=== PATIENT | male | born 1960 | race Caucasian/White ===

== ENCOUNTER → 2018-01-26 14:15 | Outpatient (CLI) | payer BC, SELFPAY ==
--- NOTE | 2018-01-26 14:18 | CT_ITS ---
CT lung screening EXAM: CT LUNG LOW DOSE WO CONTRAST COMPARISON: None HISTORY: Tobacco abuse, asymptomatic ITS.REASON: CURRENT TOBACCO USE ORDERING PHYSICIAN: Marc Sebastian MD PATIENT AGE: 57 years TECHNIQUE: The exam . Was performed on a GE Light Speed [address] scanner using 2.90 mGy CTDI. A low dose helical CT CHEST was performed on a multi-detector scanner. All CT scans at the facility use one or more dose reduction, viz: automated exposure control; ma/kV adjustment per patient size (including targeted exams where dose is matched to indication; i.e. head); or iterative reconstruction technique. The LDCT was performed in a facility that meets the criteria for the screening program. Data regarding this exam was submitted to ACR which is an approved registry. The order for this exam indicates that it came as a result of a lung cancer screening counseling shard decision-making visit that included all the elements required of such a visit including smoking cessation. The radiologist interpreting this exam meets the CMS criteria for the LDCT lung cancer screening program. The exam is reported using the Lung-RADS classification scale and reported to the ACR registry. NOTE: This study was performed for the specific purposes of lung cancer screening and is not an alternative to diagnostic chest CT. RADIATION DOSE: CTDI vol(CT dose Index-volume) = 2.90mG DLP (Dose Length Product) = 114.77 mGcm FINDINGS: There are centrilobular and paraseptal emphysematous changes with hyperinflation and mild bronchial thickening consistent with obstructive chronic bronchitis. 5 mm noncalcified nodule right lower lobe superiorly. Calcified nodes are present in the mediastinum and queta. There are coronary artery calcifications.. Calcified granuloma is present in the right upper lobe posteriorly IMPRESSION: 1. Lung RADS Category: 2, benign 2. Other findings: Centrilobular and paraseptal emphysema with obstructive chronic bronchitis Coronary artery calcification consistent with coronary artery disease RECOMMENDATIONS: Continued annual LDCT follow-up
== END ==
PROVIDERS: Family Provider Family Medicine; PCP Family Medicine; Visit Provider Family Medicine
DX: Z87.891 Personal history of nicotine dependence (principal); Z12.2 Encounter for screening for malignant neoplasm of respiratory organs

== ENCOUNTER → 2019-02-19 07:28 | Outpatient (CLI) | payer BC, SELFPAY ==
--- NOTE | 2019-02-19 07:30 | CT_ITS ---
CT lung screening EXAM: CT LUNG LOW DOSE WO CONTRAST HISTORY: 40 pack-year smoking history, asymptomatic for lung cancer ITS.REASON: CURRENT TOBACCO USE ORDERING PHYSICIAN: Marc Sebastian MD PATIENT AGE: 58 years COMPARISON: 01/26/2018 TECHNIQUE: The exam was performed on a GE Light Speed [address] scanner using 2.90 mGy CTDI. A low dose helical CT CHEST was performed on a multi-detector scanner. All CT scans at the facility use one or more dose reduction, viz: automated exposure control, ma/kV adjustment per patient size (including targeted exams where dose is matched to indication, i.e. head), or iterative reconstruction technique. The LDCT was performed in a facility that meets the criteria for the screening program. Data regarding this exam was submitted to ACR which is an approved registry. The order for this exam indicates that it came as a result of a lung cancer screening counseling shard decision-making visit that included all the elements required of such a visit including smoking cessation. The radiologist interpreting this exam meets the CMS criteria for the LDCT lung cancer screening program. The exam is reported using the Lung-RADS classification scale and reported to the ACR registry. NOTE: This study was performed for the specific purposes of lung cancer screening and is not an alternative to diagnostic chest CT. RADIATION DOSE: CTDI vol(CT dose Index-volume) = 2.90mG DLP (Dose Length Product) = 110.20 mGcm FINDINGS: FINDINGS: There are centrilobular and paraseptal emphysematous changes with hyperinflation and mild bronchial thickening consistent with obstructive chronic bronchitis. 5 mm noncalcified nodule present in the posterior aspect of the right upper lobe not significant change. There are dependent changes in the lower lobes posteriorly. 5 mm noncalcified nodule right lower lobe superiorly. Calcified nodes are present in the mediastinum and queta. There are coronary artery calcifications.. Calcified granuloma is present in the right upper lobe posteriorly IMPRESSION: 1. Lung RADS Category: 2, benign 2. Other findings: Centrilobular and paraseptal emphysema with obstructive chronic bronchitis Coronary artery calcification consistent with coronary artery disease RECOMMENDATIONS: Continued annual LDCT follow-up
== END ==
PROVIDERS: PCP Family Medicine; Visit Provider Family Medicine
DX: Z12.2 Encounter for screening for malignant neoplasm of respiratory organs (principal); Z87.891 Personal history of nicotine dependence

== ENCOUNTER → 2020-06-22 09:18 | Outpatient (CLI) | payer BC, SELFPAY | PROVIDERS: PCP Family Medicine; Visit Provider Nurse Practitioner | DX: Z03.818 Encounter for observation for suspected exposure to other biological agents ruled out (principal) | CPT/HCPCS: U0003 ==

== ENCOUNTER 2022-07-12 11:40 | Emergency (ER) | payer BC, SELFPAY ==
[2022-07-12] VITALS (13 sets, daily range): BP systolic 124–161; BP diastolic 65–91; PULSE 83–120; RESP 16–18; TEMP 36.8; O2SAT 97–99; BMI 22.4
--- NOTE | 2022-07-12 12:30 | PC.NURSE ---
IV established and blood sent to the lab
--- NOTE | 2022-07-12 12:44 | HMH.EDGENADL ---
Discharge Plan Disposition Patient Disposition: Left Against Medical Advice Condition: Fair Referrals Follow up/Referrals: Provider,Referral, [Primary Care Provider] - See instructions Clinical Impressions Clinical Impression: Fecal impaction, Acute urinary retention Instructions Patient Instructions: DI for Urinary Tract Infection (UTI), DI for Urinary Tract Infection in Children Discharge ED Provider: Rafiq Anderson General Adult HPI General Chief complaint: Urogenital-Male Stated complaint: Constipation, unable to urinate Time Seen by Provider: 07/12/22 12:32 Mode of Arrival: Ambulatory Source of Information: Patient Limitations: No Limitations Description of Symptoms (Recalled from ER Triage Doc. by RN): pt to ed c/o constipation x4 days. pt states he is having difficulty urinating. pt reports trying an enema and mag citrate with no success. History of Present Illness HPI narrative: Complains of constipation for the past 4 days. He has tried an enema but could not tolerate infusing more than just a tiny bit. He has tried magnesium citrate. He has having discomfort in his rectum and abdominal discomfort. Denies vomiting. He now says that he is not able to urinate since last evening. Complains of bladder distention as well. He had a primary care provider appointment this morning, but left the office before he was seen because he did not feel he could wait any longer. States he is miserable. No prior problems with constipation. Related Data Allergies Allergy/AdvReac Type Severity Reaction Status Date / Time No Known Allergies Allergy Verified 07/12/22 09:39 [facility] Surgical History (Updated 07/12/22 @ 09:44 by Marifer Orozco CMA) History of back surgery Social History (Updated 07/12/22 @ 09:45 by Marifer Orozco CMA) Smoking Status: Never smoker alcohol intake: former substance use type: denies use current occupational status: other Travel in the last 8 weeks: None caffeine: Yes ROS Obtained: Yes Systems reviewed as appropriate & no additional complaints except as documented Constitutional Constitutional: Denies fever(s), Denies headache(s) and Denies weakness ENT Ears, Nose, Mouth, and Throat: Denies headache(s), Denies nasal discharge and Denies sore throat Cardiovascular Cardiovascular: Denies chest pain Respiratory Respiratory: Denies shortness of breath and Denies cough Gastrointestinal Gastrointestingal: Reports abdominal pain and constipation; Denies diarrhea or vomiting Genitourinary Male Genitourinary: Reports difficulty urinating and Denies flank pain Musculoskeletal Musculoskeletal: Denies numbness Neurologic Neurologic: Denies headache(s), Denies numbness and Denies weakness Physical Exam General General appearance: alert and other (appears uncomfortable) Head Head exam: atraumatic and normocephalic Eye Eye exam: Present normal appearance and EOMI ENT ENT exam: Present mucous membranes moist Neck Neck exam: Present normal inspection and trachea midline Chest Chest inspection: Present normal inspection and symmetric chest wall rise Respiratory Respiratory exam: Present normal lung sounds bilaterally; Absent respiratory distress Cardiovascular Cardiovascular exam: Present regular rate, normal rhythm and normal heart sounds Abdominal Exam Abdominal exam: Present soft, distention (Firm distended lower abdomen consistent with urinary retention, bladder distention), tenderness and normal bowel sounds; Absent guarding, rebound or rigidity Rectal Exam Rectal exam: Present fecal impaction; Absent black stool, bloody stool or mass Extremities Exam Extremities exam: Present normal inspection Neurological Exam Neurological exam: Present alert and oriented X3 Psychiatric Psychiatric exam: Present normal affect and normal mood Skin Skin exam: Present warm and dry Medical Decision Making Fito Inquiry Pt receiving controlled substance: Yes Fito was queried for t
--- NOTE | 2022-07-12 12:48 | PC.NURSE ---
pt to ct at this time
--- NOTE | 2022-07-12 12:48 | CT_ITS ---
FINAL REPORT TECHNIQUE: After the administration of intravenous contrast, axial images were obtained through the abdomen and pelvis by computed tomography. The study was performed with techniques to keep radiation dose as low as reasonably achievable, (ALARA). Individual dose reduction techniques using automated exposure control or adjustment of mA and/or kV according to the patient's size were employed. CLINICAL HISTORY: constipation, abdo pain, urinary retention FINDINGS: Abdomen: There is mild bibasilar atelectasis. The liver is normal in size and attenuation. The gallbladder is present. The spleen is unremarkable. The adrenals are normal. The pancreas is unremarkable. The kidneys enhance appropriately. The aorta is normal in caliber. There is no free fluid or adenopathy. Pelvis: The appendix is normal. A Dorsey catheter is present. There is a large amount of retained stool in the rectum consistent with fecal impaction. Rectum measures 8.5 cm in diameter. There is no free fluid or adenopathy. IMPRESSION: Fecal impaction. Reviewed, Interpreted and Dictated by Branden Leonard III, MD Transcribed by Gemma Stout Authenticated and . [facility]
[2022-07-12 13:00] LABS: Occult Blood,Stool Negative (Negative)
--- NOTE | 2022-07-12 13:02 | PC.NURSE ---
pt back from ct at this time
--- NOTE | 2022-07-12 13:14 | PC.NURSE ---
Pt had 1500mL urine output upon F/C placement. Expresses a relief in abd pressure
[2022-07-12 13:53] LABS: Chloride 102 mmol/L (98-107); Potassium 4.3 mmoL/L (3.5-5.1); Sodium 138 mmol/L (136-145)
[2022-07-12 13:56] LABS: Alanine Aminotransferase 22 U/L (12-78); Albumin Level 4.4 g/dl (3.5-5.0); Albumin/Globulin Ratio 1.6 (1.1-1.8); Alkaline Phosphatase 113 U/L (38-126); Anion Gap 16.3 mEq/L (5-15); Aspartate Amino Transferase 29 U/L (17-59); Bilirubin,Total 0.7 mg/dl (0.2-1.3); Blood Urea Nitrogen 16 mg/dl (9-20); Carbon Dioxide 24 mmol/L (22.0-30.0); Creatinine Clearance Estimated 124 mL/min (50-200); Estimated Glomerular Filt Rate 115 ml/min (>60); GFR (African American) 140 ML/MIN (>60); Globulin 2.7 g/dL (1.3-3.2); Total Protein,Serum 7.1 g/dl (6.3-8.2)
[2022-07-12 13:57] LABS: Calcium 9.2 mg/dl (8.4-10.2); Glucose 260 mg/dl (74-100)
[2022-07-12 14:05] LABS: Basophils # 0.1 K/mm3 (0-0.2); Basophils % 0.6 % (0.1-2.0); Eosinophils # 0.1 K/mm3 (0.0-0.4); Hematocrit 50.1 % (42.0-52.0); Lymphocytes # 1.2 K/mm3 (0.7-4.5); Lymphocytes % 9.3 % (10-50); Mean Corpuscular HGB Conc 31.9 g/dL (31.8-35.4); Mean Corpuscular Volume 94.3 fl (80-94); Mean Platelet Volume 8.3 fl (7.4-10.4); Monocytes # 0.4 K/mm3 (0.1-1.0); Monocytes % 3.3 % (1.7-9.3); Platelet Count 309 K/mm3 (142-424); Red Blood Count 5.32 M/mm3 (4.60-6.20); White Blood Count 12.8 K/mm3 (4.8-10.8)
[2022-07-12 14:07] LABS: MANUAL DIFFERENTIAL MANUAL DIFFERENTIAL (MANUAL DIFF)
[2022-07-12 14:13] LABS: Triiodothryronine (T3) Uptake 36 % (23.5-40.5)
[2022-07-12 14:14] LABS: Free Thyroxine Index 4.4 ug/dL (5.93-13.13); T4 (Thyroxine) 12.3 ug/dl (5.53-11.0)
[2022-07-12 14:23] LABS: Lymphocytes % 7 % (10-50); Monocytes % 5 % (2-9); Neutrophils % 88 % (42-76); Total Cells Counted 100
[2022-07-12 14:24] LABS: Platelet Estimate Normal; RBC Morphology Normal
[2022-07-12 14:28] LABS: Thyroid Stimulating Hormone 0.27 uIU/mL (0.465-4.68)
--- NOTE | 2022-07-12 17:38 | PC.NURSE ---
attempted enema with pt with no success. MD notified. verbal order for miralax by
--- NOTE | 2022-07-12 18:56 | PC.NURSE ---
pt approached staff and states he wants to go home. notified.
--- NOTE | 2022-07-12 19:05 | PC.NURSE ---
spoke with pt and pt states he still wants to leave. duane and EVETTE szymanski/c
== END 2022-07-12 19:25 | disposition left against medical advice (07) ==
PROVIDERS: Emergency Provider Emergency Medicine
DX: K56.41 Fecal impaction; R33.9 Retention of urine, unspecified; Z87.39 Personal history of other diseases of the musculoskeletal system and connective tissue; Z53.29 Procedure and treatment not carried out because of patient's decision for other reasons
CPT/HCPCS: 51702; 74177; 80053; 82272; 84436; 84443; 84479; 85007; 85025; 96374; 96375; 99284; G0328; J2405; Q9967

== ENCOUNTER 2023-12-14 18:50 | Outpatient (CLI) | payer BC, SELFPAY ==
[2023-12-14 17:54] LABS: Microscopic, Urine URINE MICROSCOPIC (MICROSCOPIC)
[2023-12-14 18:02] LABS: Basophils # 0.1 K/mm3 (0-0.2); Basophils % 1.4 % (0.1-2.0); Eosinophils # 0.3 K/mm3 (0.0-0.4); Eosinophils % 3.5 % (0.1-12.0); Hematocrit 53.3 % (42.0-52.0); Lymphocytes # 2.6 K/mm3 (0.7-4.5); Lymphocytes % 27.2 % (10-50); Mean Corpuscular HGB Conc 31.9 g/dL (31.8-35.4); Mean Corpuscular Volume 100.4 fl (80-94); Mean Platelet Volume 9.2 fl (7.4-10.4); Monocytes # 0.5 K/mm3 (0.1-1.0); Monocytes % 5.1 % (1.7-9.3); Neutrophils % 62.8 % (37.0-80.0); Platelet Count 270 K/mm3 (142-424); Red Blood Count 5.31 M/mm3 (4.60-6.20); Red Cell Distribution Width 13.6 % (11.5-17.5); White Blood Count 9.5 K/mm3 (4.8-10.8)
[2023-12-14 18:10] LABS: Appearance,Urine CLEAR (Clear); Bilirubin,Urine Negative (Negative); Blood, Urine Negative (Negative); Color,Urine YELLOW (Yellow); Glucose,Urine (UA) 2+ (Negative); Ketones,Urine Negative (Negative); Leukocyte Esterase,Urine Negative (Negative); Nitrate,Urine Negative (Negative); Protein,Urine Negative (Negative); Specific Gravity, Urine <= 1.005 (1.005-1.030); Urobilinogen,Urine 0.2 EU/dl (0.2)
[2023-12-14 18:13] LABS: Alanine Aminotransferase 29 U/L (12-78); Albumin Level 4.5 g/dl (3.5-5.0); Albumin/Globulin Ratio 1.8 (1.1-1.8); Alkaline Phosphatase 100 U/L (38-126); Anion Gap 12.6 mEq/L (5-15); Aspartate Amino Transferase 27 U/L (17-59); Bilirubin,Total 0.5 mg/dl (0.2-1.3); Blood Urea Nitrogen 13 mg/dl (9-20); Calcium 10.1 mg/dl (8.4-10.2); Carbon Dioxide 29 mmol/L (22.0-30.0); Chloride 102 mmol/L (98-107); Estimated Glomerular Filt Rate 98 ml/min (>60); GFR (African American) 119 ML/MIN (>60); Globulin 2.5 g/dL (1.3-3.2); Glucose 189 mg/dl (74-100); Potassium 4.6 mmoL/L (3.5-5.1); Sodium 139 mmol/L (136-145)
[2023-12-14 18:23] LABS: Creatinine,Urine Random 24 mg/dL (Not Estab.)
[2023-12-14 18:26] LABS: Microalbumin < 6.000 mg/L (0-16.7)
[2023-12-14 18:27] LABS: Free T4 (Free Thyroxine) 1.71 ng/dl (0.78-2.19)
[2023-12-14 18:42] LABS: Prostate Specific Ag Screen 0.6 ng/ml (0.0-4.0); Thyroid Stimulating Hormone 0.59 uIU/mL (0.465-4.68)
[2023-12-16 11:01] LABS: Testosterone,Total 686 ng/dL (264-916)
== END 2023-12-14 23:59 ==
LOC: LAB.DROPOF 18:50
PROVIDERS: PCP Nurse Practitioner; Visit Provider Nurse Practitioner
DX: R53.83 Other fatigue (principal); Z12.5 Encounter for screening for malignant neoplasm of prostate; K63.5 Polyp of colon; Z79.899 Other long term (current) drug therapy
CPT/HCPCS: 80053; 81001; 82043; 82570; 84403; 84439; 84443; 85025; 87086; G0103

== ENCOUNTER 2024-04-30 10:45 | Outpatient (CLI) | payer BC, SELFPAY ==
--- NOTE | 2024-04-30 10:46 | CT_ITS ---
FINAL REPORT TECHNIQUE: Thin section axial images were obtained from the lung apices to the upper abdomen by computed tomography. Reformatted images were obtained and reviewed. This study was performed with techniques to keep radiation doses al low as reasonably achievable (ALARA). Individualized dose reduction techniques using automated exposure control or adjustment of mA and/or kV according to the patient's size were employed. CLINICAL HISTORY: lung cancer screening CURRENT SMOKER 2PPD X 45 YEARS COMPARISON: 02/19/2019 FINDINGS: CHEST CT LOW DOSE -year-old male, current smoker, [id number] history. CTDI vol (mGy): 2.9 DLP (mGy-cm): 105.25 There is no axillary adenopathy. There is no mediastinal or hilar mass or adenopathy. The heart is normal in size. Presumed coronary artery stents are present. There is no pericardial or pleural effusion. There is moderate emphysema and mild pulmonary scarring. Atelectasis is present in the lung bases. Lung window images demonstrate a posterior right upper lobe nodule, 4 mm in size, best seen on image #31, stable. There is also a lateral right lower lobe nodule measuring 5 mm, also stable. Several calcified granulomas are present. Limited images of the upper abdomen are unremarkable. IMPRESSION: Lung-RADS category 1. Recommend 12 month follow up low dose chest CT. Reviewed, Interpreted and Dictated by Branden Leonard III, MD Transcribed by Malia Khan Authenticated and . [facility]
== END 2024-04-30 23:59 | disposition home or self-care (01) ==
PROVIDERS: PCP Nurse Practitioner; Visit Provider Nurse Practitioner
DX: Z87.891 Personal history of nicotine dependence (principal)
CPT/HCPCS: 71271

== ENCOUNTER 2024-12-11 11:58 | Outpatient (CLI) | payer BC, SELFPAY ==
[2024-12-11 19:25] LABS: Basophils # 0.1 K/mm3 (0-0.2); Eosinophils # 0.4 K/mm3 (0.0-0.4); Eosinophils % 4.7 % (0.1-12.0); Hematocrit 49.1 % (42.0-52.0); Lymphocytes # 2.9 K/mm3 (0.7-4.5); Lymphocytes % 30.5 % (10-50); Mean Corpuscular HGB Conc 32.6 g/dL (31.8-35.4); Mean Corpuscular Hemoglobin 31.6 pg (27.0-31.2); Mean Corpuscular Volume 96.8 fl (80-94); Mean Platelet Volume 10.2 fl (7.4-10.4); Monocytes # 0.7 K/mm3 (0.1-1.0); Monocytes % 7.8 % (1.7-9.3); Neutrophils # 5.2 K/mm3 (1.8-7.8); Neutrophils % 55.8 % (37.0-80.0); Platelet Count 287 K/mm3 (142-424); Red Blood Count 5.07 M/mm3 (4.60-6.20); Red Cell Distribution Width 13.1 % (11.5-17.5); White Blood Count 9.4 K/mm3 (4.8-10.8)
[2024-12-11 19:57] LABS: Creatinine,Urine Random 31 mg/dL (Not Estab.); Microalbumin < 6.000 mg/L (0-16.7)
[2024-12-11 20:34] LABS: Alanine Aminotransferase 21 U/L (12-78); Albumin Level 4.4 g/dl (3.5-5.0); Albumin/Globulin Ratio 1.9 (1.1-1.8); Alkaline Phosphatase 91 U/L (38-126); Anion Gap 14.2 mEq/L (5-15); Aspartate Amino Transferase 22 U/L (17-59); Bilirubin,Total 0.5 mg/dl (0.2-1.3); Blood Urea Nitrogen 11 mg/dl (9-20); Calcium 10.3 mg/dl (8.4-10.2); Carbon Dioxide 28 mmol/L (22.0-30.0); Chloride 102 mmol/L (98-107); Estimated Glomerular Filt Rate 98 ml/min (>60); GFR (African American) 119 ML/MIN (>60); Globulin 2.3 g/dL (1.3-3.2); Glucose 161 mg/dl (74-100); Potassium 5.2 mmoL/L (3.5-5.1); Sodium 139 mmol/L (136-145); Total Protein,Serum 6.7 g/dl (6.3-8.2)
[2024-12-11 20:50] LABS: 25-OH Vitamin D, Total 33.9 ng/mL (30-100)
[2024-12-11 21:25] LABS: Vitamin B12 732 pg/mL (239-931)
== END 2024-12-11 23:59 | disposition home or self-care (01) ==
LOC: LAB.DROPOF 12-12 11:51
PROVIDERS: PCP Nurse Practitioner; Visit Provider Nurse Practitioner
DX: I25.10 Atherosclerotic heart disease of native coronary artery without angina pectoris (principal); F17.200 Nicotine dependence, unspecified, uncomplicated; N40.0 Benign prostatic hyperplasia without lower urinary tract symptoms; Z91.199 Patient's noncompliance with other medical treatment and regimen due to unspecified reason; K21.9 Gastro-esophageal reflux disease without esophagitis; K63.5 Polyp of colon
CPT/HCPCS: 80053; 82043; 82306; 82570; 82607; 84443; 85025

== ENCOUNTER 2025-06-16 06:01 | Day surgery (SDC) | payer BC, SELFPAY ==
--- NOTE | 2025-06-13 07:28 | EXP.HP ---
History of Present Illness *Admission Date: 06/16/25 *Reason for visit:: Personal history of adenomatous colon polyps *History of present illness: Mr. Quintana is a 64-year-old gentleman who is here for screening/surveillance colonoscopy. He did have a colonoscopy in January 2019 and had a single adenomatous polyp (Branden Shore MD) removed. His preparation was only fair and it was recommended that he get 3-year surveillance interval. The examination is deemed medically necessary for screening/surveillance colonoscopy. The patient has been seen, interviewed and examined prior to the procedure by both myself and the anesthesia provider. [facility] Disclaimer: The information contained in this section may have been updated after the patient was seen, as this information can be updated by other users. Medical History Activity intolerance Insulin dependent diabetes mellitus with retinopathy Lung nodule Erectile dysfunction Anxiety with depression Medically noncompliant Uncontrolled diabetes mellitus CAD (coronary artery disease) GERD (gastroesophageal reflux disease) Colon polyps Personal history of smoking Constipation Fatigue Surgical History History of surgery on lower extremity Hx of heart artery stent H/O cardiac catheterization History of esophagogastroduodenoscopy (EGD) History of colonoscopy History of back surgery Family History (Updated 06/16/25 @ 06:17 by Marlena Yu RN) Other No significant family history Social History (Updated 06/16/25 @ 06:14 by Marlena Yu RN) Smoking Status: Current every day smoker tobacco type: cigarettes packs per day: 3 quit status: not considering quitting second hand exposure: Yes alcohol intake: former year quit: 2015 substance use type: denies use current occupational status: other Travel in the last 8 weeks?: None caffeine: Yes Have you lived/traveled outside US in past 30 days?: No Contact w/someone who lives/traveled outside US past 30 days?: No Exposure to someone with infectious disease in past 14 days?: No Do you have a fever (greater than 100.4 F or 38 C)?: No Have you tested positive for COVID-19?: No Exposed to someone with COVID-19 in past 14 days?: No Do you have a sore throat?: No Do you have a cough?: No Do you have any weakness?: No Are you experiencing any nausea/vomitting?: No Do you have any diarrhea?: No Are you experiencing any unusual bleeding?: No Do you have any muscle aches/pain?: No Do you have any abdominal pain?: No Are you experiencing loss of taste or smell?: No Other Medical History Have you received the Pneumonia Vaccine: Yes Review of Systems Review of Systems Review of systems (narrative): Negative *Cardiovascular Comments: Negative *Gastrointestinal Comments: Negative *Genitourinary Comments: Negative *Musculoskeletal Comments: Negative *Neurologic Comments: Negative Meds Home Medications and Allergies Home Medications ?Medication ?Instructions ?Recorded ?Confirmed ?Type atorvastatin 40 mg tablet 40 mg PO HS 12/14/23 06/16/25 History losartan 50 mg tablet 50 mg PO DAILY 12/14/23 06/16/25 History pen needle, diabetic 32 gauge x #1,200 ea 12/14/23 06/16/25 History / (BD Meli 2nd Gen Pen Needle) flash glucose sensor (FreeStyle #1 ea 07/23/24 06/16/25 Rx Karolina 2 Sensor kit) ezetimibe 10 mg tablet (Zetia) 10 mg PO DAILY 12/11/24 06/16/25 History acetone (urine) test (Ketostix #25 ea 02/05/25 06/16/25 History strips) albuterol sulfate 90 mcg/actuation 2 puff inhalation QID PRN 02/05/25 06/16/25 Rx aerosol inhaler bronchospasm #8.5 grams blood sugar diagnostic (OneTouch #10 ea 02/05/25 06/16/25 History Verio test strips) blood-glucose meter (OneTouch #1 ea 02/05/25 06/16/25 History Verio Flex Meter) blood-glucose sensor (FreeStyle #1 ea 02/05/25 06/16/25 History Karolina 3 Plus Sensor device) clopidogrel 75 mg tablet 75 mg PO DAILY 02/05/25 06/16/25 History insulin aspart (B3)(U-100) 100 80 unit SQ NEEDED PRN 02/05/25 06/16/25 History unit/mL (1.6 mL) subcut pump Hyperglycemia cartridge (Fiasp Pumpcart) lancets 33 gauge (PlumWillowTouch Delica #100 ea 02/05/25 06/16/25 History Plus Lancet) sildenafil 100 mg tablet (Viagra) 100 mg PO DAILY #30 tabs 04/03/25 06/16/25 Rx sodium,potassium,mag sulfates 17.5 See Rx Instructions PO .COMPLEX 06/02/25 06/16/25 Rx gram-3.13 gram-1.6 gram oral soln #354 mL (Suprep Bowel Prep Kit) New Prescriptions to Start Prescriptions: Allergies Allergy/AdvReac Type Severity Reaction Status Date / Time No Known Allergies Allergy Verified 06/16/25 06:25 Exam *Routine HEENT Exam Head: Present normocephalic Eye: Present EOMI and PERRL ENT: Present mucous membranes moist *Routine Neck Exam Neck: Present supple *Routine Respiratory Exam Respiratory: Present CTA bilaterally *Routine Cardiovascular Exam Cardiovascular: Present RRR *Routine Abdominal Exam Abdominal: Present soft and normoactive bowel sounds; Absent tenderness *Routine Rectal Exam Rectal:: deferred *Routine Genitalia Exam Genitalia:: deferred *Routine Extremities Exam Extremities: Absent cyanosis, clubbing or edema *Routine Skin Exam Skin: Present warm; Absent rash *Routine Neurological Exam Neurological: Present alert and oriented X3 Assessment and Plan *Assessment and plan (1) History of adenomatous polyp of colon: Status: Acute Category: Medical Code(s): Z86.0101 - Personal history of adenomatous and serrated colon polyps (2) Screening for colon cancer: Status: Acute Category: Medical Code(s): Z12.11 - Encounter for screening for malignant neoplasm of colon Plan A/P: 1. Personal history of adenomatous colon polyp is the preprocedural diagnosis. The patient will be anesthetized/sedated using MAC sedation. The patient has been seen and examined. Cardiac and lung assessment prior to the examination is stable. Proceed with planned screening/surveillance colonoscopy.
[2025-06-13 10:11] VITALS: BMI 23.2
[2025-06-16 06:12] VITALS: BP 122/78; PULSE 89; RESP 16; TEMP 36.1; O2SAT 98; BMI 23.2
[2025-06-16] MEDS: LACTATED RINGERS 1000ML 1,000 ML 50 ML IV (06:31)
[2025-06-16 06:34] LABS: POC Glucose,Bedside 171 gm/dL (70-110)
--- NOTE | 2025-06-16 06:46 | P.PCN_ITS ---
[facility] Procedure Note Date: 06/16/25 Time: 07:49 Procedure Note:: Colonoscopy Procedure Report: Colonoscopy with cold snare polypectomy Endoscopist: Srinath Wiggins II, MD Referring physician: ELLIOTT Alejandre Date of Procedure: June 16, 2025 Equipment: Olympus [id number] adult colonoscope Sedation: MAC sedation Indication: Mr. See is a 64-year-old gentleman who is here for screening/surveillance colonoscopy. He did have a colonoscopy in January 2019 and had a single adenomatous polyp (Branden Shore MD) removed. His preparation was only fair and it was recommended that he get 3-year surveillance interval. The patient reports no abdominal pain, weight loss, change in his bowel habits or rectal bleeding. He does not know his family history. He does have some mild chronic constipation. The examination is deemed medically necessary for screening/surveillance colonoscopy. Procedure: Prior to the procedure, a history and physical exam was performed, and patient's medications and allergies were reviewed. The risks, benefits and alternatives of the sedation and procedure were discussed with the patient. All questions were answered and informed consent was obtained. The patient was brought to the procedure room. Patient identification and proposed procedure were verified by the physician and the nurse. The patient was placed in a left lateral decubitus position and the scope was passed under direct vision. Throughout the procedure, the patient's blood pressure, pulse, and oxygen saturations were monitored continuously. The colonoscopy was accomplished without difficulty. The patient tolerated the procedure well. Findings: On digital rectal examination there was normal rectal tone. There were no external hemorrhoids. The prostate was 2+, smooth, soft, symmetric without nodules. The colonoscope was introduced through the anal canal to the rectum and advanced to the cecum. The ileocecal valve and appendiceal orifice were identified. The scope was advanced a short distance into the ileum which appeared grossly normal. The scope was then withdrawn into the colon. There were 2 polyps (transverse x 1 (5 mm) and rectosigmoid x 1 (4 mm)). Both of these were removed via cold snare polypectomy. The remaining cecum, ascending, transverse, descending, sigmoid and rectum were grossly normal. There was mild melanosis coli. There were no other mucosal abnormalities identified. Upon retroflexion within the rectum there were grade 1-2 internal hemorrhoids. The preparation was good throughout with [place] Preparation Score of 8 out of 9. The cecal time was 12 minutes. Impression: 1. Diminutive colonic polyps x 2 (4 and 5 mm) Plan: I will follow-up the polyp histology and recommend repeat screening/surveillance colonoscopy again in 7 years if the polyps are adenomatous. I would encourage a fiber bowel regimen on a maintenance basis.
--- NOTE | 2025-06-16 06:50 | P.PNANES_ITS ---
[facility] Disclaimer: The information contained in this section may have been updated after the patient was seen, as this information can be updated by other users. Medical History Activity intolerance Insulin dependent diabetes mellitus with retinopathy Lung nodule Erectile dysfunction Anxiety with depression Medically noncompliant Uncontrolled diabetes mellitus CAD (coronary artery disease) GERD (gastroesophageal reflux disease) Colon polyps Personal history of smoking Constipation Fatigue Surgical History History of surgery on lower extremity Hx of heart artery stent H/O cardiac catheterization History of esophagogastroduodenoscopy (EGD) History of colonoscopy History of back surgery Family History (Updated 06/16/25 @ 06:17 by Marlena Yu RN) Other No significant family history Social History (Updated 06/16/25 @ 06:14 by Marlena Yu RN) Smoking Status: Current every day smoker tobacco type: cigarettes packs per day: 3 quit status: not considering quitting second hand exposure: Yes alcohol intake: former year quit: 2015 substance use type: denies use current occupational status: other Travel in the last 8 weeks?: None caffeine: Yes Have you lived/traveled outside US in past 30 days?: No Contact w/someone who lives/traveled outside US past 30 days?: No Exposure to someone with infectious disease in past 14 days?: No Do you have a fever (greater than 100.4 F or 38 C)?: No Have you tested positive for COVID-19?: No Exposed to someone with COVID-19 in past 14 days?: No Do you have a sore throat?: No Do you have a cough?: No Do you have any weakness?: No Are you experiencing any nausea/vomitting?: No Do you have any diarrhea?: No Are you experiencing any unusual bleeding?: No Do you have any muscle aches/pain?: No Do you have any abdominal pain?: No Are you experiencing loss of taste or smell?: No [facility] Anesthesia Checklist Patient Identification Patient Identification: Arm Band and Family Structural Data Admitted From: Home Planned Operative Procedure/s: Colonoscopy Consent for Planned Operative Procedure(s) Verified: Yes Verified Documents: Surgical Consent and History and Physical NPO Status Verified Time NPO: 00:00 Additional verifications Patient : No Anesthesia Reactions: No Hx Blood Transfusions: No Blood Transfusion Reaction: No Cephalosporin Allergy: No Previous Colonoscopy: Yes Airway Assessment Mallampati Score:: Class II C-Spine Mobility Assessed: Yes TMJ Mobility Assessed: Yes Dentition: Edentulous Neurological Assessment Level of Consciousness: Awake, Alert, Appropriate and Follows Commands Hx Seizures: No Numbness or tingling in extremities: No Anesthesia Plan Anesthesia Risk discussed: Yes ASA Class: III Anesthesia Type: MAC
[2025-06-16 07:52] VITALS: BP 89/53; PULSE 78; RESP 16; TEMP 36.4; O2SAT 96
[2025-06-16 08:02] VITALS: BP 94/58; PULSE 76; RESP 16; O2SAT 96
[2025-06-16 08:12] VITALS: BP 112/68; PULSE 68; RESP 16; O2SAT 97
[2025-06-16 08:22] VITALS: BP 132/73; PULSE 82; RESP 16; O2SAT 98
== END 2025-06-16 08:22 | disposition home or self-care (01) ==
PROVIDERS: PCP Nurse Practitioner; Visit Provider Internal Medicine Gastroenterology
PROC: 0DJD8ZZ Inspection of Lower Intestinal Tract, Via Natural or Artificial Opening Endoscopic (ICD-10-PCS; CPT 45378; principal; 2025-06-16 07:30)
DX: Z12.11 Encounter for screening for malignant neoplasm of colon (principal); D12.3 Benign neoplasm of transverse colon; K63.5 Polyp of colon; K64.0 First degree hemorrhoids; K64.1 Second degree hemorrhoids; K63.89 Other specified diseases of intestine; K59.00 Constipation, unspecified; F17.210 Nicotine dependence, cigarettes, uncomplicated; I25.10 Atherosclerotic heart disease of native coronary artery without angina pectoris; E11.9 Type 2 diabetes mellitus without complications; Z79.4 Long term (current) use of insulin; Z86.0101 Personal history of adenomatous and serrated colon polyps
CPT/HCPCS: 45385; 82962; J2003; J2704; J7120